=== PATIENT | female | born 1965 | race Caucasian/White ===

== ENCOUNTER 2017-12-15 19:16 | Emergency (ER) | payer OTHER ==
[~2017-12-15] VITALS: Ht 170.2 cm; Wt 95.2 kg
[~2017-12-15 19:16] MED LIST: ALUMAG30SU PO; Flonase 0.05% N16 GM; HYDR25SUP PR; IBUP400 PO; LAMO100 PO; METO100ER PO; METO50 PO; MYLANTA PO; Omeprazole20 M1 PO; PRAZ2 PO; Prednisone20 MG PO; RANI150 PO; Tylenol325 MG PO; Ultram50 MG PO; Zofran Odt4 MG PO
[2017-12-15 19:49] LABS: BASOPHILS ABSOLUTE AUTO 0.04 K/mm3 (0.00-0.23); BASOPHILS PERCENT AUTO 1 % (0-2); EOSINOPHILS ABSOLUTE AUTO 0.38 K/mm3 (0.00-0.68); EOSINOPHILS PERCENT AUTO 5 % (0-6); Hematocrit 41.2 % (33.0-51.0); Hemoglobin 13.5 g/dL (11.5-16.0); IMMATURE GRAN ABSOLUTE AUTO 0.03 K/mm3 (0.00-0.10); IMMATURE GRAN PERCENT AUTO 0 % (0-1); LYMPHOCYTES ABSOLUTE AUTO 3.07 K/mm3 (0.84-5.20); LYMPHOCYTES PERCENT AUTO 42 % (21-46); MONOCYTES ABSOLUTE AUTO 0.48 K/mm3 (0.16-1.47); MONOCYTES PERCENT AUTO 7 % (4-13); Mean Corpuscular HGB 30.7 pg (26.0-34.0); Mean Corpuscular HGB Conc 32.8 g/dL (31.5-36.5); Mean Corpuscular Volume 94 fL (80-100); NEUTROPHILS ABSOLUTE AUTO 3.29 K/mm3 (1.96-9.15); NEUTROPHILS PERCENT AUTO 45 % (41-73); Platelet Count 256 K/mm3 (150-400); RDW Coefficient Variation 12.4 % (11.7-14.2); RDW Standard Deviation 42.8 fL (35.1-46.3); White Blood Cell Count 7.29 K/mm3 (4.00-11.30)
[2017-12-15 20:04] LABS: Alanine Aminotransfer (ALT/SGP 37 U/L (12-78); Albumin/Globulin Ratio 1.1 (0.8-1.8); Alk Phos 112 U/L (50-136); Anion Gap 9 mmol/L (6-16); Aspartate Aminotrans (AST/SGOT 22 U/L (12-37); Bilirubin, Total 0.2 mg/dL (0.1-1.0); Blood Urea Nitrogen 9 mg/dL (8-24); Bun/Creatinine Ratio 11.3 (12.0-20.0); CO2, Blood 27 mmol/L (21-32); Calcium, Blood 8.9 mg/dL (8.5-10.1); Chloride, Blood 103 mmol/L (98-108); Creatinine, Blood 0.79 mg/dL (0.40-1.00); Globulin, Blood 3.6 g/dL (2.2-4.0); Glomerular Filtration Rate >60 (60-); Glucose, Blood 161 mg/dL (70-99); Potassium, Blood 3.5 mmol/L (3.5-5.5); Sodium, Blood 139 mmol/L (136-145); Total Protein, Blood 7.6 g/dL (6.4-8.2)
[2017-12-15 21:37] LABS: Source, Urine Clean Catch
[2017-12-15 21:41] LABS: Appearance, Urine Clear (Clear); Bilirubin, Urine Neg (Neg); Blood, Urine Neg (Neg); Color, Urine Yellow (P-Yellow); Glucose Qualitative, Urine Neg (Neg); Ketones, Urine Neg (Neg); Leukocyte Esterase, Urine Neg (Neg); Nitrite, Urine Neg (Neg); Protein, Urine Neg (Neg); Urobilinogen, Urine NORM (Normal); pH, Urine 6.5 (5.0-8.0)
[2017-12-15] MEDS ORDERED: FAMO10 PO (21:59)
[2017-12-15] MEDS ORDERED: LANS15EC PO (22:00)
[2017-12-15] MEDS ORDERED: Pyridium100 MG PO (22:18)
== END 2017-12-15 22:47 | disposition home or self-care (01) ==
LOC: ER 19:16
PROVIDERS: Emergency Medicine
DX: R30.0 Dysuria (principal); Z79.899 Other long term (current) drug therapy; G43.909 Migraine, unspecified, not intractable, without status migrainosus; Z87.891 Personal history of nicotine dependence
CPT/HCPCS: 36415; 80053; 81003; 83690; 85025; 99283

== ENCOUNTER → 2017-12-17 | Outpatient (CLI) | payer OTHER ==
[~2017-12-17] MED LIST changes: +FAMO10 PO; +LANS15EC PO; +Pyridium100 MG PO
== END ==
LOC: LAB SRC 10:08 → LAB SHORT 10:08
DX: R31.9 Hematuria, unspecified (principal); R30.0 Dysuria; Z87.442 Personal history of urinary calculi
CPT/HCPCS: 87086